=== PATIENT | female | born 1980 | race American Indian/Alaskan Native ===

== ENCOUNTER 2024-03-25 09:30 | Emergency (ER) | payer MEDICAID ==
[2024-03-25] MEDS: Sodium Chloride 0.9% 10 ML Syringe FLUSH PRN (11:06)
== END 2024-03-25 16:27 | disposition home or self-care (01) ==
LOC: JD.ED 09:30
DX: D64.89 Other specified anemias (principal); C53.9 Malignant neoplasm of cervix uteri, unspecified; Z79.899 Other long term (current) drug therapy
CPT/HCPCS: 36415; 36430; 82272; 86850; 86900; 86901; 86922; 99284; J3490; P9016